=== PATIENT | male | born 1985 | race Caucasian/White ===

== ENCOUNTER 2024-10-10 17:09 | Emergency (ER) | payer BC, SELFPAY ==
[~2024-10-10] VITALS: Ht 180.3 cm; Wt 117.9 kg
[~2024-10-10 17:09] MED LIST: Amoxicillin875 MG PO
[2024-10-10 18:56] VITALS: BP 155/74
== END 2024-10-10 19:32 | disposition home or self-care (01) ==
LOC: ER 17:09
DX: I49.3 Ventricular premature depolarization (principal); Z87.891 Personal history of nicotine dependence
CPT/HCPCS: 71046; 93005; 93010; 99284-25